=== PATIENT | female | born 1985 | race African-American/Black ===

== ENCOUNTER 2018-03-04 09:06 | Day surgery (SDC) | END 2018-03-04 14:40 | disposition home or self-care (01) ==

== ENCOUNTER 2018-07-09 09:05 | Inpatient (IN) | payer OTHER ==
[2018-07-08 12:50] VITALS: BMI 26.0
--- NOTE | 2018-07-08 12:56 | PREOPHP ---
DATE OF ADMISSION: 07/09/2018 The patient is coming on 07/09/2018 for a surgical procedure. HISTORY OF PRESENT ILLNESS: This is a 33-year-old female, 0, para 0. This patient had been referred to me due to severe back pain, lower abdominal pain and bloatedness and a mass on her abdome n. The patient was evaluated with a large mass that was going around her navel and apparently is a l arge fibroid. The patient had been having dysmenorrhea, dyspareunia, history of anemia and pelvic pr essure to the point where also her bladder is incontinent every time she laughs or coughs. PAST SURGICAL HISTORY: D and C. REVIEW OF SYSTEMS: Negative for cardiovascular disease, lung disease, GI disease, endocrine disease, neurological disease. SOCIAL HISTORY: She does not drink or smoke. ALLERGIES: SHE IS NOT ALLERGIC TO ANY MEDICATION. FAMILY HISTORY: Breast cancer on her mother and diabetes on her father. PHYSICAL EXAMINATION: GENERAL APPEARANCE: Good. VITAL SIGNS: Stable. Blood pressure is 118/77, pulse is 80, respirations 16. She weighs 175 pounds and she is 5 feet, 7 inches. HEAD AND NECK: Normal. BREASTS: Soft, nontender, no masses. CHEST: Clear. HEART: Normal sinus rhythm. LUNGS: Clear. BACK: Normal. ABDOMEN: With the uterine enlargement up to her navel, hard, very difficult evaluation due to the si ze of these fibroids. PELVIC: Normal vagina, painful bladder. The cervix is normal. Uterus with about 20 weeks' size of her . Adnexa are unknown. consistent with a 20-week size giant fibroid uterus. The patient was advised for a myomectomy and possible total abdominal hysterectomy in case of complic ations. She has been advised of the possible risks and possible complications of the procedure with her alternatives and options. Written information was provided. She had no more questions and agree d to go ahead with the procedure with full understanding and no more questions. DIAGNOSES: 1. Giant Large fibroid uterus. 2. Intractable menometrorrhagia. 3. Intractable pelvic pain. 4. Urinary stress incontinence. Dictated By: JAVAD LOPEZ/MAHENDRA Conf#: [id number] DID#: [id number]
[2018-07-09] VITALS (28 sets, daily range): BP systolic 122–154; BP diastolic 55–91; PULSE 60–100; RESP 12–24; Ht 170.2 cm; Wt 77.3 kg
[~2018-07-09] VITALS: Ht 170.2 cm; Wt 77.3 kg
[~2018-07-09 09:05] MED LIST: CEFAZOLIN 2 GM/50 ML (PMX) 50 ML IVPB ONE
--- NOTE | 2018-07-09 10:00 | PREAC ---
Date/Time of Note Date/Time of Note DATE: 07/09/18 TIME: 09:57 Anesthesia Eval and Record Evaluation Time Pre-Procedure Interview DATE: 07/09/18 TIME: 09:57 Age 33 Sex female NPO: 8 hrs Preoperative diagnosis fibroid uterus, menometrorrhagia, pelvic pain Planned procedure myomectomy, possible IZZY Past Medical History Past Medical History: None Surgery & Anesthesia Issues No known issue (one week muscle "ache" after most recent surgery here at [facility]) Meds Anticoagulation: No Beta Yamilka within 24 hr: No Reason Beta Yamilka not given: Pt. not on B-Yamilka No Active Prescriptions or Reported Meds Meds reviewed: Yes Allergies Coded Allergies: No Known Allergy (Unverified , 07/09/18) Allergies Reviewed: Yes Labs/Studies Labs Reviewed: Reviewed by anesthesiologist test: Negative Pre-procedure Exam Airway: Adequate mouth opening, Adequate thyromental dist Mallampati: Mallampati II Teeth: Normal Lung: Normal Heart: Normal ASA Physical Status ASA physical status: 1 Emergency: None Planned Anesthetic General/MAC: ETT Planned Pain Management Parenteral pain med, Local by surgeon Pre-operative Attestations Prior to commencing anesthesia and surgery, the patient was re-evaluated, there was verification of: *The patient's identity *The results of appropriate recent lab work and preoperative vital signs *The above evaluation not changing prior to induction *Anesthetic plan, risk benefits, alternative and complications discussed with patient/family; questions answered; patient/family understands, accepts and wishes to proceed. SENIA LINDA Jul 09, 2018 09:59
--- NOTE | 2018-07-09 11:56 | HPN ---
Date/Time of Note Date/Time of Note DATE: 07/09/18 TIME: 11:56 Interval H&P Admission Note Pt. seen H&P reviewed: No system changes JAVAD REDMOND MD Jul 09, 2018 11:56
[2018-07-09] MEDS ORDERED: ROCURONIUM 50 MG INJ ONE ×2 (12:04→12:44)
[2018-07-09] MEDS ORDERED: PROPOFOL 20 ML ONE (12:04)
[2018-07-09] MEDS ORDERED: CEFAZOLIN 1 GM INJ ONE (12:04)
[2018-07-09] MEDS ORDERED: MIDAZOLAM 1 MG/ML 2 ML INJ ONE (12:04)
[2018-07-09] MEDS ORDERED: LIDOCAINE 2% (SDV) 5 ML INJ ONE (12:04)
[2018-07-09] MEDS ORDERED: HYDROmorphONE 2 MG/ML SYG ONE (12:10)
[2018-07-09] MEDS ORDERED: VASOPRESSIN 20 UNITS INJ ONE ×3 (12:10→13:20)
[2018-07-09] MEDS ORDERED: ONDANSETRON 4 MG INJ ONE (12:21)
[2018-07-09] MEDS ORDERED: DEXAMETHASONE 4 MG/ML 5 ML INJ ONE (12:21)
[2018-07-09] MEDS ORDERED: FAMOTIDINE 20 MG INJ ONE (12:21)
[2018-07-09] MEDS ORDERED: METOCLOPRAMIDE 10 MG INJ ONE (12:21)
[2018-07-09] MEDS ORDERED: PHENYLephrine 10 MG INJ ONE (12:24)
[2018-07-09] MEDS ORDERED: KETAMINE (100 MG/ML) 5 ML VIAL ONE (12:33)
[2018-07-09] MEDS ORDERED: VASOPRESSIN 20 UNITS INJ SC ONE ×2 (12:35→13:20)
[2018-07-09] MEDS ORDERED: ALBUTEROL 0.083% (NEB) 2.5 MG/3 ML AMP HHN PRN (13:30)
[2018-07-09] MEDS ORDERED: PROCHLORPERAZINE 10 MG INJ IV PRN (13:30)
[2018-07-09] MEDS ORDERED: HYDROmorphONE 1 MG/5 ML IV SYRINGE IV PRN (13:30)
[2018-07-09] MEDS ORDERED: MEPERIDINE 25 MG INJ IV PRN (13:30)
[2018-07-09] MEDS ORDERED: ONDANSETRON 4 MG INJ IV PRN (13:30)
[2018-07-09] MEDS ORDERED: ACETAMINOPHEN 1000MG/100ML IV 100 ML IVPB PRN (13:30)
[2018-07-09] MEDS ORDERED: MIDAZOLAM 1 MG/ML 2 ML INJ IV PRN (13:30)
[2018-07-09] MEDS ORDERED: NEOSTIGMINE 3 MG/3 ML SYRINGE ONE (13:52)
[2018-07-09] MEDS ORDERED: GLYCOPYRROLATE 0.4 MG INJ ONE (13:52)
--- NOTE | 2018-07-09 14:48 | SIPON ---
Date/Time of Note Date/Time of Note DATE: 07/09/18 TIME: 14:46 Operative Report Preoperative Diagnosis Giant large fibroid uterus Intractable pelvic pain and intractable menometrorrhagia Anemia Urinary stress incontinence Postoperative Diagnosis Same Operation/Procedure Performed Multiple myomectomy Surgeon see signature line sound assistant Opal GARY Anesthesia: general Estimated blood loss: 250 - 300 ml's Transfusion Required none Specimen Fibroids Grafts/Implants none Complications none JAVAD REDMOND MD Jul 09, 2018 14:48
[2018-07-09] MEDS ORDERED: HYDROCODONE/APAP (5/325) TAB PO PRN (15:00)
[2018-07-09] MEDS ORDERED: ONDANSETRON INJ 6 MG in DEXTROSE 5% 50 ML IVPB PRN (15:00)
[2018-07-09] MEDS ORDERED: ZOLPIDEM 5 MG TAB PO PRN (15:00)
[2018-07-09] MEDS ORDERED: DIPHENHYDRAMINE 50 MG CAP PO PRN (15:00)
[2018-07-09] MEDS ORDERED: HYDROmorphONE 1 MG/5 ML IV SYRINGE IV ONE ×2 (15:05→15:15)
--- NOTE | 2018-07-09 15:07 | PAC ---
Date/Time of Note Date/Time of Note DATE: 07/09/18 TIME: 15:07 Post-Anesthesia Notes Post-Anesthesia Note Last documented vital signs HR 91, SPO2 100% bp 149/74 rr 20 TEMP 98.3 Vital Signs Date Temp Pulse Resp B/P (MAP) Pulse Ox O2 O2 Flow FiO2 Time Delivery Rate 07/09/18 96.7 68 18 122/68 100 10:12 (86) Activity: WNL Respiratory function: WNL Cardiovascular function: WNL Mental status: Baseline Pain reasonably controlled: Yes Hydration appropriate: Yes Nausea/Vomiting absent: Yes SENIA LINDA Jul 09, 2018 15:07
[2018-07-09] MEDS: KETOROLAC 30 MG INJ IV SCH ×2 (15:18→21:45)
[2018-07-09] MEDS: HYDROmorphONE 1 MG/5 ML IV SYRINGE IV PRN ×6 (15:50→16:20)
[2018-07-09] MEDS: LACTATED RINGER'S 1,000 ML IV SCH ×2 (18:09→22:40)
[2018-07-09] MEDS: METOCLOPRAMIDE 10 MG TAB PO SCH (18:10)
--- NOTE | 2018-07-09 18:16 | OPR ---
DATE OF OPERATION: 07/09/2018 PROCEDURE: Multiple myomectomies. PREOPERATIVE DIAGNOSES: 1. Giant large fibroid uterus. 2. Intractable pelvic pain. 3. Intractable menometrorrhagia. 4. Anemia. 5. Urinary stress incontinence. POSTOPERATIVE DIAGNOSES: 1. Giant large fibroid uterus. 2. Intractable pelvic pain. 3. Intractable menometrorrhagia. 4. Anemia. 5. Urinary stress incontinence. QUITLINE COUNSELOR: Opal Smith PA-C. ANESTHESIA: General and spinal. BLOOD LOSS: About 300 mL. DESCRIPTION OF PROCEDURE: The patient was given epidural anesthesia and general anesthesia, placed i n the supine position. The abdomen was prepped and draped, and a Lomax catheter had been placed in t he bladder. A transverse incision was made of about 15 cm in diameter, 2 cm up the pubic bone. The abdomen was opened in layers without difficulties. Abdominal cavity was reached and very large fibro id uterus was delivered through the abdominal cavity bringing out the uterus with other large fibroid s with it. The giant fibroid that was on top of the uterus and 2 Connie clamps were passed through t o clamp the fibroid and remove it. The top of the uterus was sutured with [id number] sutures wi th #1 Vicryl, and hemostasis was good. The injection of Pitressin diluted with normal saline was giv en in the fibroids, all the other side of the fibroids, where the uterus was cut vertically on the le ft side first anteriorly to remove a real big fibroid that was intramyometrial left side to the uteru s. This fibroid was removed anteriorly and the bed of the fibroid was sutured with 2-0 Vicryl and 2- 0 chromic sutures, obtaining good hemostasis. The major incision was made posteriorly as well to rem ove the 2 fibroids that were closer to the posterior wall and closer to the cervix. The same injecti on with Pitressin was done and the fibroids were removed and the bed of the fibroid was closed with 2 -0 Vicryl and 2-0 chromic sutures, obtaining good hemostasis. The cavity was now placed with a self- retaining retractor, and we pushed the bowel up to look at the uterus under water and there was no ac tive bleeding. The left ovary and tube apparently, instead of being left sided, were almost anterior due to the position of the uterus being towards the rotation clockwise. The right tube and ovary an d left tube and ovary were normal. We protected the tubes and ovaries with Interceed and all the are as of the incisional myomectomy were protected with Interceed. The abdominal cavity was closed now a fter sponge counts, instrument counts, and needle counts were correct with a 2-0 Vicryl suture for pe ritoneum, 0 PDS looped suture for the fascia, 2-0 Vicryl for the subcutaneous tissue, and 3-0 Monocry l subcuticular to the skin. The patient tolerated the procedure well and left the OR, awake and stab le. Sponge counts and instrument counts were correct. Intravenous antibiotics were given for prophy laxis. Blood loss was approximately 300 mL. Dictated By: JAVAD LOPEZ/MAHENDRA Conf#: [id number] DID#: [id number]
[2018-07-09] MEDS: CEFAZOLIN 1 GM/50 ML (PMX) 50 ML IVPB SCH (21:46)
[2018-07-10 00:05] VITALS: BP 112/55; PULSE 98; RESP 20
[2018-07-10] MEDS: METOCLOPRAMIDE 10 MG TAB PO SCH ×5 (00:11→23:43)
[2018-07-10] MEDS: HYDROCODONE/APAP (5/325) TAB PO PRN ×3 (02:11→15:04)
[2018-07-10] MEDS: KETOROLAC 30 MG INJ IV SCH ×4 (03:05→21:02)
[2018-07-10] MEDS: LACTATED RINGER'S 1,000 ML IV SCH ×2 (03:07→11:23)
[2018-07-10] MEDS: CEFAZOLIN 1 GM/50 ML (PMX) 50 ML IVPB SCH ×3 (05:50→22:13)
[2018-07-10 07:52] VITALS: BP 127/75; PULSE 80; RESP 18
--- NOTE | 2018-07-10 12:05 | PN ---
Date/Time of Note Date/Time of Note DATE: 07/10/18 TIME: 12:03 Assessment/Plan Lines/Catheters IV Catheter Type (from Nrsg): Peripheral IV Lomax in Place (from Nrsg): Yes Subjective 24 Hr Interval Summary Day 1 post surgery myomectomy multiple Afebrile Feels good Happy that the operation is over Patient was explained about the procedure and she is very grateful Encouraged ambulation Incision healing well Anemic We will give IV iron Constitutional: no complaints Feeding: advancing diet Pain Control: mild Detailed Summary Eyes: no complaints ENT: no complaints Respiratory: no complaints Cardiovascular: no complaints Gastrointestinal: no complaints Genitourinary: no complaints Musculoskeletal: no complaints Skin: no complaints Neurologic: no complaints Endocrine: no complaints Lymphatic: no complaints Psychological: no complaints, nl mood/affect Immunologic: no complaints Exam/Review of Systems Vital Signs Vitals Vital Signs Date Temp Pulse Resp B/P (MAP) Pulse Ox O2 O2 Flow FiO2 Time Delivery Rate 07/10/18 98.3 80 18 127/75 98 Room Air 07:52 (92) 07/09/18 2.0 18:30 Intake and Output 07/09/18 07/09/18 07/10/18 1515:00 23:00 07:00 IntakeIntake Total 3000 ml 50 ml 1700 ml OutputOutput Total 500 ml 1100 ml BalanceBalance 2500 ml 50 ml 600 ml Exam Constitutional: alert, oriented, well developed Psych: no complaints, nl mood/affect Head: normocephalic, atraumatic Eyes: nl conjunctiva, EOMI, nl lids, nl sclera ENMT: nl external ears & nose, nl lips & teeth, nl nasal mucosa & septum, mucosa pink and moist Neck: supple, non-tender Respiratory: clear to auscultation, normal air movement Cardiovascular: regular rate and rhythm, nl pulses Gastrointestinal: soft, nl liver, spleen, non-tender Musculoskeletal: nl extremities to inspection, nl gait and stance Extremities: normal pulses Neurological: REVENUE FIELD AUDITOR II-XII intact, nl mental status, nl speech, nl strength Skin: nl turgor, rash or lesions Lymph: nl lymph nodes Results Result Diagram: 07/10/18 0438 07/10/18 0438 JAVAD REDMOND MD Jul 10, 2018 12:05
[2018-07-10] MEDS ORDERED: BISACODYL (EC) 5 MG TAB PO ONE (12:30)
[2018-07-10] MEDS ORDERED: SOD FERRIC GLUC COMPLX 125 MG in SOD CHLORIDE 0.9% 100 ML IVPB SCH (13:00)
[2018-07-10 16:29] VITALS: BP 129/68; PULSE 75; RESP 18
[2018-07-10 19:30] VITALS: BP 111/59; PULSE 75; RESP 20
[2018-07-10 23:42] VITALS: BP 123/76; PULSE 71; RESP 17
[2018-07-11] MEDS: CEFAZOLIN 1 GM/50 ML (PMX) 50 ML IVPB SCH (06:00)
[2018-07-11] MEDS: METOCLOPRAMIDE 10 MG TAB PO SCH ×4 (06:23→23:18)
--- NOTE | 2018-07-11 07:49 | PN ---
Date/Time of Note Date/Time of Note DATE: 07/11/18 TIME: 07:46 Assessment/Plan Lines/Catheters IV Catheter Type (from Nrsg): Saline Lock Lomax in Place (from Nrsg): Yes Subjective 24 Hr Interval Summary Afebrile, day 2 post exploratory laparotomy. Patient has been ambulatory passing gases IV infiltrated so we did not finish IV Iron but she feels good with no signs symptoms of anemia since she is chronically anemic she is used to it Tolerating diet and pain controlled. For possible home in the morning Constitutional: no complaints Feeding: advancing diet Pain Control: mild Detailed Summary Eyes: no complaints ENT: no complaints Respiratory: no complaints Cardiovascular: no complaints Gastrointestinal: no complaints Genitourinary: no complaints Musculoskeletal: no complaints Skin: no complaints Neurologic: no complaints Endocrine: no complaints Lymphatic: no complaints Psychological: no complaints, nl mood/affect Immunologic: no complaints Exam/Review of Systems Vital Signs Vitals Vital Signs Date Temp Pulse Resp B/P (MAP) Pulse Ox O2 O2 Flow FiO2 Time Delivery Rate 07/10/18 71 17 123/76 98 Room Air 23:42 (92) 07/10/18 98.2 19:30 07/09/18 2.0 18:30 Intake and Output 07/10/18 07/10/18 07/11/18 1515:00 23:00 07:00 IntakeIntake Total 1450 ml 400 ml 450 ml BalanceBalance 1450 ml 400 ml 450 ml Exam Constitutional: alert, oriented, well developed Psych: no complaints, nl mood/affect Head: normocephalic, atraumatic Eyes: nl conjunctiva, EOMI, nl lids, nl sclera ENMT: nl external ears & nose, nl lips & teeth, nl nasal mucosa & septum, mucosa pink and moist Neck: supple, non-tender Respiratory: clear to auscultation, normal air movement Cardiovascular: regular rate and rhythm, nl pulses Gastrointestinal: soft, nl liver, spleen, non-tender Musculoskeletal: nl extremities to inspection, nl gait and stance Extremities: normal pulses Neurological: COURT STENOGRAPHER II-XII intact, nl mental status, nl speech, nl strength Skin: nl turgor, rash or lesions Lymph: nl lymph nodes Results Result Diagram: 07/11/18 0447 07/10/18 0438 JAVAD REDMOND MD Jul 11, 2018 07:49
[2018-07-11] MEDS ORDERED: BISACODYL (EC) 5 MG TAB PO ONE (08:00)
[2018-07-11 08:18] VITALS: BP 118/59; PULSE 89; RESP 20
[2018-07-11] MEDS: IBUPROFEN 800 MG TAB PO SCH ×3 (09:10→20:54)
[2018-07-11] MEDS ORDERED: INFLUENZA VIRUS VACCINE 0.5 ML (DISPENSING) IM* ONE (10:00)
[2018-07-11 20:45] VITALS: BP 118/70; PULSE 72; RESP 18
[2018-07-12 02:33] VITALS: BP 117/67; PULSE 74; RESP 18
[2018-07-12] MEDS: METOCLOPRAMIDE 10 MG TAB PO SCH ×2 (06:43→12:16)
[2018-07-12 08:18] VITALS: BP 116/71; PULSE 79; RESP 18
[2018-07-12] MEDS: IBUPROFEN 800 MG TAB PO SCH ×2 (09:18→12:16)
[2018-07-12] MEDS ORDERED: BISACODYL 10 MG SUPP PR STA (10:37)
--- NOTE | 2018-07-12 10:40 | PD.PPDC ---
TAX AUDITOR Discharge Instruction Condition [id number] Patient Condition: [id number] Good Diet [id number] Diet: Ezwni6y Resume Regular Diet Activity/Restrictions [id number] Activity: [id number] Normal Activity May Shower [id number] Restrictions: [id number] No Exercising No Lifting No Driving No Sexual Activity Nothing in the Vagina No [place] No Tampons, douche Wound/Drain Care Instructions [id number] Wound/Drain Care Instructions: [id number] Wash with soap and water Keep clean and dry Follow-up Follow-up with Physician: 1, Week/Weeks Return to clinic for [id number] PEDIATRICIAN/MEDICAL DOCTOR Instructions: [id number] Fever greater than 101 Chills Worsening abdominal pain Excessive Vaginal Bleeding More than 2 pads per hour Unable to tolerate diet [id number] Surgical Instructions: [id number] Incisional Drainage Incisional Redness JAVAD REDMOND MD Jul 12, 2018 10:40
--- NOTE | 2018-07-12 10:49 | DS ---
Date/Time of Note Date/Time of Note DATE: 07/12/18 TIME: 10:41 Discharge Summary Admission/Discharge Info Admit Date/Time Jul 09, 2018 at 09:05 Discharge Date/Time July 12, 2018 Discharge Diagnosis Multiple giant fibroid uterus multiple large intra-abdominal masses Intractable pelvic pain and bleeding Anemia Patient Condition: Good Procedures Excision of large multiple intra-abdominal masses Multiple myomectomy Hx of Present Illness 33 years old female who had seen me for intractable pelvic pain and the sudden growth of multiple fibroids and intra-abdominal masses that were given her excruciating pain and intractable bleeding to bring her down to severe anemia. The patient was offered an exploratory laparotomy and excision of these masses Hospital Course The patient underwent an exploratory laparotomy and large huge masses waiting up to 2 pounds were removed from her The patient did very well postoperatively except for anemia for which she was given IV iron. And she has been tolerating diet, passing gases. She has been ambulatory and having pain control with p.o. medication today she is requesting. And evaluation of her heartbeat since she feels that she has lots of flutter on her chest. She will be discharged today if a normal EKG will be obtained. She will be discharged home on vitamins Tylenol 3 and ibuprofen as needed. High protein diet and light housekeeping at home. She was see me in 1 week or earlier if she had any problems She was given instructions how to talk to me at any time Home Meds No Active Prescriptions or Reported Meds Follow-up Plan 1 week Primary Care Provider Not On Staff Doctor Time spent on discharge: < 30 minutes JAVAD REDMOND MD Jul 12, 2018 10:49
[2018-07-12 14:33] VITALS: BP 118/66; PULSE 78; RESP 18
== END 2018-07-12 16:40 | disposition home or self-care (01) | DRG 743 ==
LOC: REC 09:05 → MS1 17:49
PROVIDERS: ADMIT Obstetrics & Gynecology; ATTEND Obstetrics & Gynecology
PROC: 0UB90ZZ Excision of Uterus, Open Approach (ICD-10-PCS; principal; 2018-07-09 11:00)
DX: D25.9 Leiomyoma of uterus, unspecified (principal); N92.1 Excessive and frequent menstruation with irregular cycle; N39.3 Stress incontinence (female) (male); D50.0 Iron deficiency anemia secondary to blood loss (chronic)
CPT/HCPCS: 80051; 82565; 84520; 85025; 86850; 86900; 86901; 87086; 88305; 93005; J0690; J1100; J1170; J1885; J2250; J2405; J2710; J2765; J2916; J7120